=== PATIENT | male | born 1955 | race Caucasian/White ===

== ENCOUNTER → 2017-09-10 | Outpatient (CLI) | payer MEDICARE, OTHER | LOC: LAB.O 09:54 | PROVIDERS: ATTEND Urology | DX: C67.9 Malignant neoplasm of bladder, unspecified (principal); N50.9 Disorder of male genital organs, unspecified ==

== ENCOUNTER → 2017-12-27 | Outpatient (CLI) | payer MEDICARE, OTHER | LOC: GMAM 10:44 | PROVIDERS: ATTEND Family Medicine | DX: Z12.5 Encounter for screening for malignant neoplasm of prostate (principal) ==

== ENCOUNTER → 2017-12-31 | Outpatient (CLI) | payer MEDICARE, OTHER ==
--- NOTE | 2017-12-31 11:30 | US ---
EXAM DESCRIPTION:Venous,Lower Extremity RT CLINICAL HISTORY:DVT COMPARISON: None TECHNIQUE: Grayscale and color Doppler sonographic evaluation of lower extremity deep venous structures. FINDINGS: Common femoral, superficial femoral, popliteal , peroneal and posterior tibial veins in right lower extremity are patent with full compressibility. No intraluminal filling defect identified in these deep venous structures. IMPRESSION: No sonographic evidence of deep venous thrombosis (DVT) in right lower extremity Electronically signed by: Kit Carey MD 12/31/2017 11:29 AM [facility]
== END ==
LOC: US 10:30
PROVIDERS: ATTEND Family Medicine
DX: I80.292 Phlebitis and thrombophlebitis of other deep vessels of left lower extremity (principal); N18.3 Chronic kidney disease, stage 3 (moderate); F17.200 Nicotine dependence, unspecified, uncomplicated; E11.21 Type 2 diabetes mellitus with diabetic nephropathy

== ENCOUNTER → 2018-03-01 | Outpatient (CLI) | payer MEDICARE, OTHER ==
--- NOTE | 2018-03-02 17:29 | US ---
Exam: Bilateral lower extremity arterial Doppler sonogram CLINICAL HISTORY: Abnormal ankle brachial index of the right lower extremity TECHNIQUE: Doppler sonographic evaluation of the right lower extremity was performed. FINDINGS: Right Submitted sonographic images reveal monophasic flow throughout the right lower extremity with low velocities. This suggests proximal stenosis. Calcified plaque is seen in the common femoral and superficial femoral arteries. No high-grade stenosis is visualized. The following peak systolic flow flow velocity measurements were obtained: Common femoral artery velocity equals 40 centimeters per second , monophasic. Superficial femoral artery velocity equals 35-43 centimeters per second , monophasic. Popliteal artery velocity equals 20 centimeters per second , monophasic. Peroneal artery velocity equals 14 centimeters per second , monophasic. Posterior tibial artery velocity equals 26 centimeters per second , monophasic. Dorsalis pedis artery velocity equals 10 centimeters per second , monophasic. IMPRESSION: Slow monophasic flow throughout the right lower extremity arteries. Electronically signed by: Cole Henderson MD 03/02/2018 5:28 PM CDT
== END ==
LOC: US 11:05
PROVIDERS: ATTEND Family Medicine
DX: R09.89 Other specified symptoms and signs involving the circulatory and respiratory systems (principal)

== ENCOUNTER → 2018-03-16 | Outpatient (CLI) | payer MEDICARE, OTHER | LOC: GMAM 17:03 | PROVIDERS: ATTEND Family Medicine | DX: R39.0 Extravasation of urine (principal); C67.9 Malignant neoplasm of bladder, unspecified ==

== ENCOUNTER → 2018-06-02 | Outpatient (CLI) | payer MEDICARE, OTHER | LOC: GMAM 13:23 | PROVIDERS: ATTEND Family Medicine | DX: N18.3 Chronic kidney disease, stage 3 (moderate) (principal); D64.9 Anemia, unspecified; E83.51 Hypocalcemia ==

== ENCOUNTER → 2018-10-05 | Outpatient (CLI) | payer MEDICARE, OTHER | LOC: GMAM 12:07 | PROVIDERS: ATTEND Family Medicine | DX: N18.3 Chronic kidney disease, stage 3 (moderate) (principal); E83.51 Hypocalcemia; D64.9 Anemia, unspecified ==

== ENCOUNTER → 2018-12-10 | Outpatient (CLI) | payer MEDICARE, OTHER | LOC: LAB.O 09:50 | PROVIDERS: ATTEND Urology | DX: R68.89 Other general symptoms and signs (principal); R79.89 Other specified abnormal findings of blood chemistry; C67.9 Malignant neoplasm of bladder, unspecified ==

== ENCOUNTER → 2019-01-17 | Outpatient (CLI) | payer MEDICARE, OTHER | LOC: GMAM 12:11 | PROVIDERS: ATTEND Family Medicine | DX: D63.1 Anemia in chronic kidney disease (principal); E21.1 Secondary hyperparathyroidism, not elsewhere classified; N18.4 Chronic kidney disease, stage 4 (severe); E55.9 Vitamin D deficiency, unspecified ==

== ENCOUNTER → 2019-03-17 | Outpatient (CLI) | payer MEDICARE, OTHER | LOC: GMAM 10:56 | PROVIDERS: ATTEND Family Medicine | DX: N18.4 Chronic kidney disease, stage 4 (severe) (principal); D63.1 Anemia in chronic kidney disease; E21.1 Secondary hyperparathyroidism, not elsewhere classified ==

== ENCOUNTER → 2019-04-26 | Outpatient (CLI) | payer MEDICARE, OTHER | LOC: GMAM 16:54 | PROVIDERS: ATTEND Family Medicine | DX: L03.119 Cellulitis of unspecified part of limb (principal); L03.129 Acute lymphangitis of unspecified part of limb ==

== ENCOUNTER → 2019-04-28 | Outpatient (CLI) | payer MEDICARE, OTHER ==
--- NOTE | 2019-04-30 17:30 | US ---
EXAM DESCRIPTION: Extremity,Upper RT Arteries (accession [id number]), Venous,Upper Extremity RT (accession [id number]): ULTRASOUND. CLINICAL HISTORY: OTHER ATHEROSCLEROSIS OF [place] ARTERIES OF EXTREMITIES, UNSPECIFIED. Swelling in the right upper extremity after placement of arteriovenous shunt for dialysis COMPARISON: None Available. TECHNIQUE: Two -dimensional and doppler sonographic evaluation of the deep venous system of the right upper extremity. Doppler evaluation of the bilateral lower extremity arterial flow waveforms and velocities. FINDINGS: Doppler evaluation shows normal color flow and normal phasicity and augmentation of the right subclavian, jugular, axillary, basilic,, brachial, radial vein and ulnar vein. Cephalic vein was not seen. The right upper extremity deep veins showed normal occlusion with transducer pressure. Two-dimensional survey showed no echogenic thrombus within these veins. Arterial waveforms in the right upper extremity are biphasic and monophasic.. Comments: Significant decrease in velocity radial and ulnar arteries secondary to AV shunt. IMPRESSION: 1. Duplex ultrasound evaluation of the right upper extremity deep venous system showing no thrombosis or abnormal vascular waveform . 2. No Doppler evidence of significant atherosclerotic occlusive disease in the right upper extremity arterial system. Electronically signed by: Turner Main MD 04/30/2019 5:28 PM CDT
--- NOTE | 2019-04-30 17:30 | US ---
EXAM DESCRIPTION: Extremity,Upper RT Arteries (accession [id number]), Venous,Upper Extremity RT (accession [id number]): ULTRASOUND. CLINICAL HISTORY: OTHER ATHEROSCLEROSIS OF [place] ARTERIES OF EXTREMITIES, UNSPECIFIED. Swelling in the right upper extremity after placement of arteriovenous shunt for dialysis COMPARISON: None Available. TECHNIQUE: Two -dimensional and doppler sonographic evaluation of the deep venous system of the right upper extremity. Doppler evaluation of the bilateral lower extremity arterial flow waveforms and velocities. FINDINGS: Doppler evaluation shows normal color flow and normal phasicity and augmentation of the right subclavian, jugular, axillary, basilic,, brachial, radial vein and ulnar vein. Cephalic vein was not seen. The right upper extremity deep veins showed normal occlusion with transducer pressure. Two-dimensional survey showed no echogenic thrombus within these veins. Arterial waveforms in the right upper extremity are biphasic and monophasic.. Comments: Significant decrease in velocity radial and ulnar arteries secondary to AV shunt. IMPRESSION: 1. Duplex ultrasound evaluation of the right upper extremity deep venous system showing no thrombosis or abnormal vascular waveform . 2. No Doppler evidence of significant atherosclerotic occlusive disease in the right upper extremity arterial system. Electronically signed by: Turner Main MD 04/30/2019 5:28 PM CDT
== END ==
LOC: US 10:30
PROVIDERS: ATTEND Family Medicine
DX: R60.0 Localized edema (principal); L03.113 Cellulitis of right upper limb; I70.299 Other atherosclerosis of native arteries of extremities, unspecified extremity

== ENCOUNTER → 2019-05-02 | Outpatient (CLI) | payer MEDICARE, OTHER | LOC: GMAM 10:14 | PROVIDERS: ATTEND Family Medicine | DX: L03.113 Cellulitis of right upper limb (principal) ==

== ENCOUNTER → 2019-05-23 | Outpatient (CLI) | payer MEDICARE, OTHER | LOC: GMAJS 10:57 | PROVIDERS: ATTEND Physician Assistant | DX: R50.9 Fever, unspecified (principal) ==

== ENCOUNTER 2019-05-24 16:54 | Emergency (ER) | payer MEDICARE, OTHER ==
--- NOTE | 2019-05-24 19:04 | ED.PDOC ---
History of Present Illness - General Chief Complaint: Post Op Problems Stated Complaint: RIGHT ARM FISTULA OOZING Time Seen by Provider: 05/24/19 17:01 Source: patient Exam Limitations: no limitations - History of Present Illness Initial Comments: the patient is 63-year-old male presenting to the emergency room secondary to a dehisced right antecubital fistula site. This was apparently placed [address] Hair. He had had some increased swelling for at least the last week or 2 with a finely opening up this morning. He apparently went to his primary care doctor yesterday and was placed on doxycycline. He has apparently had one or 2 doses of that. We did do a wound culture here. We did do a blood culture here. He reports fever yesterday but none really today. He does appear to be neurovascularly at his baseline. He does not really appear to be septic. Timing/Duration: unsure Severity: moderate Improving Factors: nothing Worsening Factors: nothing Associated Symptoms: fever/chills Allergies/Adverse Reactions: Allergies Codeine Allergy (Verified 02/05/14 15:52) Penicillin G Allergy (Verified 02/05/14 15:52) Review of Systems - Review of Systems Constitutional: States: fever, malaise EENTM: States: no symptoms reported Respiratory: States: no symptoms reported Cardiology: States: no symptoms reported Gastrointestinal/Abdominal: States: no symptoms reported Genitourinary: States: no symptoms reported Musculoskeletal: States: no symptoms reported Skin: States: see HPI Neurological: States: no symptoms reported Endocrine: States: no symptoms reported All other Systems: No Change from Baseline Past Medical History (General) - Patient Medical History Hx Seizures: No Hx Cardiac Disorders: No Hx Congestive Heart Failure: No Hx Hypertension: No Hx Diabetes: Yes Hx Renal Disease: Yes Hx Cancer: Yes - Bladder Surgical History: other - Social History Hx Tobacco Use: Yes Family Medical History - Family History Father Family History: Unknown Physical Exam - Physical Exam General Appearance: Alert, Comfortable, No apparent distress Eye Exam: bilateral normal Ears, Nose, Throat: hearing grossly normal, normal ENT inspection Neck: full range of motion, supple Respiratory: lungs clear, normal breath sounds, no respiratory distress, no accessory muscle use Cardiovascular/Chest: normal peripheral pulses, no edema, other - regular rate Peripheral Pulses: radial,right: 2+, radial,left: 2+ Gastrointestinal/Abdominal: non tender, soft Rectal Exam: deferred Back Exam: no CVA tenderness, no vertebral tenderness Extremity: normal range of motion, no pedal edema, no calf tenderness, normal capillary refill, other - right upper extremity swelling and erythema along with dehisced antecubital site. Neurologic: dramatic critic II-XII nml as tested, alert, normal mood/affect, oriented x 3 Skin Exam: other Comments: Vital Signs - 24 hr 05/24/19 05/24/19 17:14 18:00 Temperature 98.8 F Pulse Rate [ 94 H 82 left brachial] Respiratory 18 20 Rate Blood Pressure 131/73 113/72 [left brachial] O2 Sat by Pulse 94 L 98 Oximetry Progress - Progress Progress: 05/24/19 19:05 the patient's 63-year-old male presenting to emergency room with a dehisced right antecubital fistula placement site. This was apparently placed by Dr. Hair approximately 5 weeks ago. The patient was started on oral doxycycline yesterday. The wound opened up today. We have done a wound culture as well as a blood culture here. Laboratory work otherwise appears to be close to baseline. He does not appear to be septic at this time. The patient is being transferred to [facility] where the surgery was performed for further intervention. No additional antibiotics have been done at this time. This is to allow for culturing of the wound during surgery if desired by vascular. The patient does appear stable at this time. As per his request he will go by private vehicle. He knows to go directly there. Departure - Departure Clinical Impression: Postoperative wound infection Disposition: Transfer to Hospital Condition: Serious Departure Forms: ED Discharge - Pt. Copy, Patient Portal Self Enrollment Referrals: Dom Garcia MD [Primary Care Provider] - 1-2 Weeks Transfer to Outside Facility - Transfer Information Accepting Provider:: dr vivas Accepting Facility: [facility] Reason for Transfer: required specialist not available
[2019-05-24 19:22] VITALS: BP 127/95; TEMP 98; O2SAT 100
== END 2019-05-24 19:25 | disposition short-term general hospital (02) ==
LOC: ER 16:54
DX: T81.49XA Infection following a procedure, other surgical site, initial encounter (principal); E11.22 Type 2 diabetes mellitus with diabetic chronic kidney disease; N18.9 Chronic kidney disease, unspecified; Z87.891 Personal history of nicotine dependence; Z85.51 Personal history of malignant neoplasm of bladder; Z88.0 Allergy status to penicillin; Z88.5 Allergy status to narcotic agent

== ENCOUNTER → 2019-08-11 | Outpatient (CLI) | payer MEDICARE, OTHER | LOC: GMAM 12:11 | PROVIDERS: ATTEND Family Medicine | DX: N18.4 Chronic kidney disease, stage 4 (severe) (principal); D63.1 Anemia in chronic kidney disease; E11.21 Type 2 diabetes mellitus with diabetic nephropathy ==

== ENCOUNTER → 2019-10-20 | Outpatient (CLI) | payer MEDICARE, OTHER | LOC: GMAM 10:15 | PROVIDERS: ATTEND Family Medicine | DX: D63.1 Anemia in chronic kidney disease (principal); E11.65 Type 2 diabetes mellitus with hyperglycemia; E87.5 Hyperkalemia; N18.4 Chronic kidney disease, stage 4 (severe) ==

== ENCOUNTER → 2020-07-02 | Outpatient (CLI) | payer MEDICARE, OTHER ==
--- NOTE | 2020-07-03 17:57 | MRI ---
EXAM DESCRIPTION: Lumbar Spine w/o Contrast : Magnetic Resonance Imaging. CLINICAL HISTORY: LOW BACK COMPARISON: Lumbar radiographs January 17. CT scan of the abdomen and pelvis without contrast May 2014. TECHNIQUE: Multiplanar, multiple standard sequences, non contrast MRI, lumbar spine. FINDINGS: L5-S1: The disc is well visualized on axial T2 series 501, image 3. Disc desiccation and minimal disc space loss. Posterior midline bulge. Hypertrophic changes in the posterior flavum ligaments and bilateral facet joints (canal elements), more on the left. Bilateral shortened pedicles. AP canal diameter 8 mm. Bilateral borderline foraminal stenosis. L4-L5: Disc desiccation with disc space maintained. Posterior midline tiny bulge containing hyperintense T2 annular fissures. Hypertrophic changes in the canal elements more on the right. Bilaterally shortened pedicles. AP canal diameter 9 mm. Bilateral severe foraminal narrowing/borderline stenosis. L3-L4: Normal signal in the disc with disc space maintained. No posterior bulging. Hypertrophic changes in the canal elements with bilaterally shortened pedicles. AP canal diameter 8.5 mm. Bilateral borderline foraminal stenosis more on the right. L2-L3: Disc space maintained with normal signal in the disc. Hypertrophic changes in the canal elements. Bilateral pedicle shortening. AP canal diameter 9.5 mm. Bilateral moderate to severe foraminal narrowing. L1-L2: Disc desiccation with disc space maintained. Hyperintense T2-weighted annular fissure in the posterior margin of the focal disc bulge, and also laterally to the left. Bilateral moderate foraminal narrowing. Hypertrophic changes in the canal elements and bilateral pedicle shortening. AP canal diameter 7.5 mm. T12-L1: Disc desiccation and posterior disc space loss. Endplate concavities with an active Schmorl's low inferior T12 endplate to the right of midline. Anterior disc bulge and endplate ridging with mild endplate reactive changes. Posterior midline 5 mm protrusion impressing on the thecal sac just below the conus. Hypertrophic changes in the canal elements. Bilateral pedicle shortening. AP canal diameter 7.5 mm. Bilateral moderate foraminal narrowing. Spine is tilted but no definite scoliosis. Paravertebral soft tissues paraspinal muscle atrophy. Distal cord normal signal and caliber. Heterogeneous marrow signal in the remaining vertebral bodies and the posterior elements. Vertebral bodies are not compressed at any level. IMPRESSION: 1. Multilevel disc desiccation, bilaterally shortened pedicles, degenerative hypertrophy of the posterior flavum ligaments and facet joints with multiple levels of canal and foraminal stenosis. 2. Posterior midline herniation of the T12-L1 disc impressing on the thecal sac with canal stenosis. Most significant canal stenosis is at this level and L1-L2 with moderate stenosis. Bilateral foraminal stenosis at L5-S1 and L4-L5. 3. Please refer to above FINDINGS for discussion of other disc space levels. Electronically signed by: Turner Main MD 07/03/2020 5:55 PM CDT
== END | disposition home or self-care (01) ==
LOC: MRI 14:15
PROVIDERS: ATTEND Family Medicine
DX: M54.5 Low back pain (principal)

== ENCOUNTER → 2020-10-16 | Outpatient (CLI) | payer MEDICARE, OTHER ==
--- NOTE | 2020-10-17 13:24 | CT ---
EXAM DESCRIPTION: Chest w/o Contrast CLINICAL HISTORY: PNEUMONIA COMPARISON: None. TECHNIQUE: Noncontrast transaxial CT images of the chest are obtained. This exam was performed according to our departmental dose-optimization program, which includes automated exposure control, adjustment of the mA and/or kV according to patient size and/or use of iterative reconstruction technique . FINDINGS: The heart is enlarged. Right IJ hemodialysis catheter seen in place with tip at the cavoatrial junction. Scattered calcified plaque of the thoracic aorta. Severe coronary artery calcifications. Enlarged mediastinal lymphadenopathy. Largest right paratracheal lymph node measures 17 mm short axis. Soft tissue attenuation mass in the right hilar to subcarinal region is seen measuring at least 4.9 cm in the right hilum. The subcarinal soft tissue attenuation mass measures 3.2 x 4.3 cm. Calcified lymph nodes in the left hilum are seen. Enlarged prevascular lymph nodes are seen. Lymph node anterior to the left innominate vein measures 14 mm short axis. Question lymph node lateral to the right thyroid measuring 1.9 cm short axis. No pericardial effusion. Trace right pleural effusion. Visualized upper abdomen shows surgical clips possibly related to previous right nephrectomy. Calcifications of the spleen are seen. The lungs are normally aerated. Increased interstitial thickening in the right upper lobe and more prominently in the right middle lobe are seen. Noncalcified nodular densities in the right upper lobe are seen. The largest measures 9 mm. Osseous structures show no aggressive bony lesions. Mild spondylitic changes of the spine are seen. IMPRESSION: Left perihilar to subcortical mass or lymphadenopathy concerning for neoplastic process possibly primary bronchogenic carcinoma. Consider tissue sampling if possible. Enlarged mediastinal lymphadenopathy likely represent lymphatic spread of neoplastic process versus lymphoma. Interstitial thickening in the right upper and right middle lobes with multiple nodular densities concerning for lymphangitic spread of neoplastic process in the right hilar to subcarinal region versus postobstructive pneumonia or pneumonitis. Small right pleural effusion is seen. Electronically signed by: Mirza Pemberton MD 10/17/2020 1:23 PM [facility]
== END ==
LOC: CT 09:52
PROVIDERS: ATTEND Family Medicine
DX: J18.9 Pneumonia, unspecified organism (principal); R91.8 Other nonspecific abnormal finding of lung field; R59.1 Generalized enlarged lymph nodes

== ENCOUNTER 2020-11-03 12:34 | Emergency (ER) | payer MEDICARE, OTHER ==
[2020-11-03] MEDS ORDERED: IPRATROPIUM/ALBUTEROL 3 ML VIAL NEB ONE ×2 (12:43→20:44)
[2020-11-03] MEDS ORDERED: SODIUM CHL 0.9% 50ML VIAL 3 ML, ALBUTEROL SULFATE NEBS 15 MG NEB ONE ×4 (12:48→17:44)
[2020-11-03] MEDS ORDERED: IPRATROPIUM BROMIDE NEBS 0.5 MG/2.5 ML VIAL NEB ONE (12:48)
--- NOTE | 2020-11-03 12:48 | ED.PDOC ---
History of Present Illness - General Source: patient, RN notes reviewed, Vital Signs reviewed, EMS notes reviewed, family - , EMS, old records Exam Limitations: clinical condition - History of Present Illness Initial Comments: 64 yo M comes in via EMS with difficulty breathing x 3 days. Hx of lung cancer, unsure if on treatment. denies chest pain. Patient talks one word per breath. Hx of dialysis, renal and bladder cancer. Was dx with stage 4 lung cancer 2 weeks ago, is scheduled to have biopsy next week. Had negative covid test 2 weeks ago. Timing/Duration: days <Mela Grady - Last Filed: 11/04/20 06:30> <Berry Garcia - Last Filed: 11/04/20 09:25> - General Chief Complaint: Respiratory Problem Time Seen by Provider: 11/03/20 12:35 - History of Present Illness Allergies/Adverse Reactions: Allergies Codeine Allergy (Verified 11/03/20 13:11) Penicillin G Allergy (Verified 11/03/20 13:11) Home Medications: Ambulatory Orders Albuterol Sulfate [Proair Hfa] 108 mcg INH PRN PRN 11/03/20 Budes/Formoterol INH 160/4.5 [Symbicort Inhaler 160/4.5] 1 puff INH PRN PRN 11/03/20 HYDROcodone 5MG/APAP 325MG [[place] 5/325] 1 tab PO QID PRN 11/03/20 Linagliptin [Tradjenta] 5 mg PO DAILY 11/03/20 Lisinopril 10 mg PO DAILY 11/03/20 Pravastatin Sodium 20 mg PO DAILY 11/03/20 Sodium Bicarbonate (Antacid) [Sodium Bicarbonate] 650 mg PO BID 11/03/20 Tiotropium [place] Monohydrate [Spiriva Respimat] 1.25 mcg INH PRN PRN 11/03/20 Review of Systems - Review of Systems Constitutional: Denies: chills, fever EENTM: Denies: blurred vision, throat pain Respiratory: States: cough, short of breath, wheezing Cardiology: Denies: chest pain, palpitations Gastrointestinal/Abdominal: Denies: abdominal pain, nausea Genitourinary: Denies: dysuria Musculoskeletal: Denies: back pain Neurological: Denies: numbness, paresthesia Endocrine: Denies: unexplained weight gain, unexplained weight loss Hematologic/Lymphatic: Denies: easy bleeding, easy bruising <Mela Grady Last Filed: 11/04/20 06:30> Past Medical History (General) - Patient Medical History Hx Seizures: No Hx Stroke: No Hx Dementia: No Hx of COPD: Yes Hx Cardiac Disorders: No Hx Congestive Heart Failure: No Hx Pacemaker: No Hx Hypertension: No Hx Diabetes: Yes Hx Renal Disease: Yes Hx Cancer: Yes - Bladder, kidney, lung Surgical History: other - nephrectomy - Social History Hx Tobacco Use: Yes <Mela Grady Last Filed: 11/04/20 06:30> Family Medical History - Family History Father Family History: Unknown <Mela Grady Last Filed: 11/04/20 06:30> Physical Exam - Physical Exam General Appearance: Alert, Anxious, Ill Appearing, Unkempt, Well Developed Eyes, Ears, Nose, Throat Exam: normal ENT inspection Neck: non-tender, full range of motion, supple Respiratory: chest non-tender, decreased breath sounds, accessory muscle use, wheezing Cardiovascular/Chest: normal peripheral pulses, no edema, no gallop, no JVD, no murmur Peripheral Pulses: radial,right: 2+, radial,left: 2+, dorsalis pedis,right: 2+, dorsalis pedis,left: 2+ Gastrointestinal/Abdominal: non tender, soft Rectal Exam: deferred Extremity: normal range of motion, non-tender, normal inspection, no pedal edema, no calf tenderness, normal capillary refill Neurologic: scanning coordinator II-XII nml as tested, no motor/sensory deficits, alert, normal mood/affect, oriented x 3 Skin Exam: normal color, warm/dry <Mela Grady Last Filed: 11/04/20 06:30> Progress - Progress Progress: 11/03/20 15:14 delay in dispo, finding placement. called 24+ placed, no placement available. 64 yo male hx of COPD, DM, ESRD on dialysis M, T,Th ,F (at home) comes in with 3 days of progressively worsening shortness of breath. 2 weeks ago was diagnosed with new onset lung cancer and was scheduled to have a biopsy next week. He was also being treated for pneumonia, but unsure what antibiotics. When patient arrived he was tachypnea, hypoxic. Speaking only one word per breath. HR 132, BP 180/100, temp 99.9, 83% on RA. Exam showed wheezes in all lung galan with accessory muscle use. CXR shows small pleural effusion, with lung mass. Blood gas shows ph 7.325, pco2 59, po2 85, hco30. He has a troponin 0.15, rpeat .19. EKG sinus tachy and shows RBBB, lafb, no prior for comparison. Covid is negative. Hes been given duonebs, solumedrol. Started on heparin. He is currently stable on bipap. Rr 23, Fio2 40 saturating 93%, speaking in full sentences. Hypoxic resp failure, copd exacerbation, nstemi. glucose 431, cr 3.37. Patient weaned off bipap, stable on 7L NC. sats 97-99%. The data reviewed when caring for this patient included: nurse notes, prior records, etc. The history and assessments from nurses notes were reviewed and considered, and the patient's home medication list was also reviewed and considered. My assessment and the results of testing completed here in the ED were discussed with the patient/family. All questions were answered, and they express understanding of my assessment and the plan. Mela Grady DO #[id number] 11/04/20 00:57 - Results/Orders Results/Orders: 11/03/20 23:19 Sodium Chloride 0.9% 1000ML [Ns 1000 ml] 1,000 ml IVS .QD 11/04/20 09:00 BiPAP Daily Laboratory Results WBC 7.0 K/mm3 (4.8-10.8) 11/03/20 13:19 RBC 2.96 M/mm3 (4.70-6.10) L 11/03/20 13:19 Hgb 9.5 gm/dL (14.0-18.0) L 11/03/20 13:19 Hct 28.2 % (42.0-52.0) L 11/03/20 13:19 MCV 95.2 fl (80.0-94.0) H 11/03/20 13:19 MCH 32.2 pg (27.0-31.0) H 11/03/20 13:19 MCHC 33.8 g/dL (33.0-37.0) 11/03/20 13:19 RDW 16.9 % (11.5-14.5) H 11/03/20 13:19 Plt Count 133 K/mm3 (130-400) 11/03/20 13:19 MPV 7.5 fl (7.40-10.4) 11/03/20 13:19 Absolute Neuts (auto) 5.60 K/uL (1.8-6.8) 11/03/20 13:19 Absolute Lymphs (auto) 0.60 K/uL (1.0-3.4) L 11/03/20 13:19 Absolute Monos (auto) 0.70 K/uL (0.2-0.8) 11/03/20 13:19 Absolute Eos (auto) 0.00 K/uL (0.0-0.4) 11/03/20 13:19 Absolute Basos (auto) 0.00 K/uL (0.0-0.1) 11/03/20 13:19 Neutrophils % 80.4 % (42.0-78.0) H 11/03/20 13:19 Lymphocytes % 9.2 % (20.0-50.0) L 11/03/20 13:19 Monocytes % 9.8 % (2.0-9.0) H 11/03/20 13:19 Eosinophils % 0.2 % (1.0-5.0) L 11/03/20 13:19 Basophils % 0.4 % (0.0-2.0) 11/03/20 13:19 PT 11.6 SECONDS (9.0-10.9) H 11/03/20 13:19 INR 1.17 (0.9-1.15) H 11/03/20 13:19 PTT (SP) 24.5 SECONDS (21.8-31.6) 11/03/20 13:19 D-Dimer, Quantitative 3110.0 ng/ml (131-400) H* 11/03/20 13:19 pCO2 59 mmHg (35-48) H 11/03/20 12:43 pO2 85 mmHg (83-108) 11/03/20 12:43 HCO3 30.6 mmol/L 11/03/20 12:43 ABG pH 7.325 (7.35-7.45) L 11/03/20 12:43 ABG O2 Saturation 95.0 % (95.0-99.0) 11/03/20 12:43 ABG Base Excess 3.6 mmol/L 11/03/20 12:43 ABG Deoxyhemoglobin 4.9 % (0.0-5.0) 11/03/20 12:43 Oxyhemoglobin % 92.3 % (94.0-98.0) L 11/03/20 12:43 Carboxyhemoglobin % 1.7 % (0.5-1.5) H 11/03/20 12:43 Methemoglobin % Sat 1.1 % (0.0-1.5) 11/03/20 12:43 Calc Total Hemoglobin 9.8 g/dL (13.5-17.5) L 11/03/20 12:43 Sodium 135 mmol/L (135-145) 11/03/20 13:19 Potassium 3.0 mmol/L (3.6-5.0) L 11/03/20 13:19 Chloride 94 mmol/L (101-111) L 11/03/20 13:19 Carbon Dioxide 28 mmol/L (21-31) 11/03/20 13:19 Anion Gap 16.0 (12-18) 11/03/20 13:19 BUN 29 mg/dL (7-18) H 11/03/20 13:19 Creatinine 3.37 mg/dL (0.6-1.3) H 11/03/20 13:19 BUN/Creatinine Ratio 8.6 (10-20) L 11/03/20 13:19 POC Glucose 400 mg/dL (70-105) H 11/03/20 19:33 Random Glucose 446 mg/dL (70-105) H* 11/03/20 22:26 Serum Osmolality 294.1 mOsm/L (275-295) 11/03/20 13:19 Calcium 8.6 mg/dL (8.4-10.2) 11/03/20 13:19 Total Bilirubin 0.4 mg/dL (0.2-1.0) 11/03/20 13:19 AST 108 IU/L (10-42) H 11/03/20 13:19 ALT 99 IU/L (10-60) H 11/03/20 13:19 Alkaline Phosphatase 86 IU/L (42-121) 11/03/20 13:19 Troponin I 0.11 ng/mL (0.01-0.05) H* 11/03/20 21:56 B-Natriuretic Peptide 677.0 pg/ml (0-100) H* 11/03/20 13:19 Serum Total Protein 6.7 gm/dL (6.4-8.2) 11/03/20 13:19 Albumin 2.8 g/dl (3.2-5.5) L 11/03/20 13:19 Globulin 3.9 gm/dL (2.3-3.5) H 11/03/20 13:19 Albumin/Globulin Ratio 0.7 (1.1-1.9) L 11/03/20 13:19 Serum Ketones Negative 11/03/20 14:05 - EKG/XRAY/CT EKG: Sinus - 127, RBBB Comments: LAFB, LVH, PVC, no prior for comparison XRAY: chest - small effusion on right, lung mass <Mela Grady - Last Filed: 11/04/20 06:30> - Progress Progress: 11/04/20 09:24 The patient is breathing significantly better than upon his initial presentation. He is still requiring high flow nasal cannula at 6 to 7 L however. He does appear much more comfortable. CT scan of the chest shows what appears to be progression of likely neoplastic process. There is blocking of the right bronchus intermedius. There is right lower and midlung consolidation. There is increased pleural effusion on the right. [facility] He will be due for dialysis soon. Vital signs have stabilized significantly since arrival. Transferring for higher level of care. Acceptance is appreciated. <Berry Garcia - Last Filed: 11/04/20 09:25> Departure - Departure Diet: diabetic diet <Mela Grady - Last Filed: 11/04/20 06:30> <Berry Garcia - Last Filed: 11/04/20 09:25> - Departure Clinical Impression: COPD exacerbation, Hypoxia, NSTEMI (non-ST elevated myocardial infarction), Hyperglycemia, Lung mass, ESRD (end stage renal disease) on dialysis Respiratory failure with hypoxia Qualifiers: Chronicity: acute on chronic Qualified Code(s): J96.21 - Acute and chronic respiratory failure with hypoxia Disposition: Transfer to Hospital Departure Forms: ED Discharge - Pt. Copy, Patient Portal Self Enrollment Referrals: Dom Garcia MD [Primary Care Provider] - 1-2 Weeks Home Medications: Ambulatory Orders Albuterol Sulfate [Proair Hfa] 108 mcg INH PRN PRN 11/03/20 Budes/Formoterol INH 160/4.5 [Symbicort Inhaler 160/4.5] 1 puff INH PRN PRN 11/03/20 HYDROcodone 5MG/APAP 325MG [[place] 5/325] 1 tab PO QID PRN 11/03/20 Linagliptin [Tradjenta] 5 mg PO DAILY 11/03/20 Lisinopril 10 mg PO DAILY 11/03/20 Pravastatin Sodium 20 mg PO DAILY 11/03/20 Sodium Bicarbonate (Antacid) [Sodium Bicarbonate] 650 mg PO BID 11/03/20 Tiotropium [place] Monohydrate [Spiriva Respimat] 1.25 mcg INH PRN PRN 11/03/20 Transfer to Outside Facility - Transfer Information Decision to Transfer Date: 11/03/20 Decision to Transfer Time: 13:19 Reason for Transfer: required specialist not available <Mela Grady - Last Filed: 11/04/20 06:30>
[2020-11-03] MEDS ORDERED: methylPREDNISolone SODIUM SUC 125 MG/2 ML VIAL IV ONE (13:01)
[2020-11-03] MEDS ORDERED: LEVALBUTEROL NEBS 1.25 MG/3 ML VIAL NEB ONE (13:01)
--- NOTE | 2020-11-03 13:30 | RAD ---
PROCEDURE:XR CHEST 1 VIEW HISTORY:sob COMPARISON: CT scan done October 16, 2020 FINDINGS: The heart again appears enlarged. There is some prominence to the right hilar region consistent with the mass seen in the right hilar region. There is a trace right-sided effusion. Lungs are otherwise clear. There are no acute bony or soft tissue abnormalities. IMPRESSION: Prominence in the right hilar region consistent with known mass seen on CT scan Small right-sided effusion Electronically signed by: Adan Sow MD 11/03/2020 1:29 PM [facility]
[2020-11-03] MEDS ORDERED: HEPARIN SODIUM (PORCINE) 5,000 U/ML VIAL IV ONE (13:49)
[2020-11-03] MEDS ORDERED: HEPARIN PREMIX 25,000 UNITS in PREMIX BAG 1 BAG IVS SCH (14:00)
[2020-11-03] MEDS ORDERED: SODIUM CHLORIDE 0.9% 1000ML 1,000 ML IVS ONE (14:18)
[2020-11-03] MEDS ORDERED: POTASSIUM CHLORIDE ELIXIR 20 MEQ/15 ML UD PO ONE (14:18)
[2020-11-03] MEDS ORDERED: IPRATROPIUM/ALBUTEROL 3 ML VIAL NEB PRN (14:27)
[2020-11-03] MEDS ORDERED: levoFLOXacin 750MG IV 750 MG in PREMIX BAG 1 BAG IVPB ONE (14:29)
[2020-11-03] MEDS ORDERED: SODIUM CHLORIDE 0.9% 1000ML 1,000 ML IVS PRN ×2 (17:44→23:19)
[2020-11-03] MEDS ORDERED: ASPIRIN (CHEWABLE) 81 MG TAB PO ONE (17:45)
[2020-11-03] MEDS ORDERED: POTASSIUM CHLORIDE IVPB ONE (17:59)
[2020-11-03] MEDS ORDERED: INSULIN, REG.(HUMAN) 100 U/ML VIAL SUBCU ONE ×2 (18:00→19:48)
[2020-11-03] MEDS ORDERED: ALBUTEROL SULFATE 2.5 MG/3 ML VIAL NEB ONE (18:12)
[2020-11-03] MEDS ORDERED: INSULIN DETEMIR 100 UNITS/ML PEN SUBCU ONE (23:18)
[2020-11-04] MEDS ORDERED: ALBUTEROL SULFATE 2.5 MG/3 ML VIAL NEB ONE (00:39)
[2020-11-04] MEDS ORDERED: methylPREDNISolone SODIUM SUC 125 MG/2 ML VIAL IV ONE (07:12)
[2020-11-04] MEDS ORDERED: IPRATROPIUM/ALBUTEROL 3 ML VIAL NEB ONE (07:12)
--- NOTE | 2020-11-04 09:21 | CT ---
EXAM DESCRIPTION: Chest w/o Contrast CLINICAL HISTORY: 64 years, Male, reeval lung masses, resp distress COMPARISON: October 16, [address] TECHNIQUE: Thin-section noncontrast axial CT images are obtained according to our protocol. Reconstructed MPR images are created and reviewed as well. This exam was performed according to our departmental dose-optimization program, which includes automated exposure control, adjustment of the mA and/or kV according to patient size and/or use of iterative reconstruction technique. FINDINGS: Significant deterioration of the right hemithorax since previous study with significant new volume loss and elevation of the right hemidiaphragm with increasing modest pleural effusion with significant right lower lobe and right middle lobe atelectasis/consolidation. There is obstruction of the bronchus intermedius 1.5 cm distal to its origin from either inflammatory disease, intrinsic neoplasm, or extrinsic compression. Extensive mass effect filling the right hilum with pathologically enlarged right paratracheal as well as superior and middle mediastinal and aorticopulmonary window lymphadenopathy consistent with metastatic tumor or lymphomatous primary neoplastic process. Interval deterioration since previous study with diffuse slightly increased prominence of lymphadenopathy noted. Previously described patchy peripheral inflammatory changes and interstitial stranding and nodularity in the remaining aerated right upper lobe is suspicious for lymphangitic spread of tumor or mild inflammatory changes. Left lung remains essentially clear with a tiny focus of pleural-based opacification superior segment left lower lobe posteriorly medially, new from prior study. No significant pleural fluid noted. Slightly coarsened stranding at the posterior lateral left lung base also now evident. Below the diaphragm surgical clips in the expected region of the right renal bed suggest the possibility of previous right nephrectomy. Cardiac silhouette is borderline prominent with extensive coronary calcification with what appears to be left ventricular dilatation and lucency in the ventricular chamber suspicious for an element of significant anemia. Correlation with laboratory values recommended. Supraclavicular and axillary region demonstrate suspected slightly enlarged lymph node in the right supraclavicular region at the superior extent of the scan. IMPRESSION: 1. Significant deterioration of the right lung with volume loss elevation of the right hemidiaphragm and increasing small pleural effusion with dense atelectasis right lower lobe and at least partial atelectasis of the right middle lobe with opacification of the distal bronchus intermedius from inflammatory change, intrinsic neoplasm, or extrinsic compression. 2. Worsening right hilar mass effect and extensive mediastinal adenopathy with significant progression from recent prior study three weeks earlier consistent with primary neoplasm with metastatic disease or rapidly progressive lymphomatous process. 3. Patchy interstitial and nodular changes in the remaining aerated right upper lobe suspicious for lymphangitic spread of tumor and minimal peripheral inflammatory changes in the posterior left lung base most likely atelectasis or mild inflammation. 4. Surgical clips right upper quadrant suspicious for previous right nephrectomy. 5. Probable left ventricular dilatation and questionable changes of anemia. 6. Right-sided central catheter in place. Electronically signed by: Dom Velazco MD 11/04/2020 9:20 AM [facility]
[2020-11-04 09:25] VITALS: TEMP 96.7
[2020-11-04 10:11] VITALS: BP 138/97; O2SAT 97
== END 2020-11-04 10:00 | disposition short-term general hospital (02) ==
LOC: ER 12:34
DX: J96.21 Acute and chronic respiratory failure with hypoxia (principal); J44.1 Chronic obstructive pulmonary disease with (acute) exacerbation; I21.4 Non-ST elevation (NSTEMI) myocardial infarction; N18.6 End stage renal disease; R00.0 Tachycardia, unspecified; I45.10 Unspecified right bundle-branch block; I44.4 Left anterior fascicular block; C34.90 Malignant neoplasm of unspecified part of unspecified bronchus or lung; E11.65 Type 2 diabetes mellitus with hyperglycemia; Z20.828 Contact with and (suspected) exposure to other viral communicable diseases; Z87.01 Personal history of pneumonia (recurrent); Z85.51 Personal history of malignant neoplasm of bladder; Z85.528 Personal history of other malignant neoplasm of kidney; E11.22 Type 2 diabetes mellitus with diabetic chronic kidney disease; Z87.891 Personal history of nicotine dependence; Z88.5 Allergy status to narcotic agent; Z88.0 Allergy status to penicillin; Z79.899 Other long term (current) drug therapy; Z99.2 Dependence on renal dialysis
CPT/HCPCS: 36415; 36416; 36600; 71045; 71250; 80053; 82009; 82803; 82805; 82947; 82948; 83880; 84484; 85025; 85379; 85610; 85730; 87040; 87635; 93005; 94640; 94660; J1644; J1815; J1956; J2930; J7030; J7611; J7614; J7620; J7644

== ENCOUNTER 2021-01-03 14:54 | Inpatient (IN) | payer MEDICARE, OTHER ==
[2021-01-03] MEDS ORDERED: cefTRIAXone SODIUM 1 GM in SODIUM CHL 0.9% 50ML MIN-BAG+ 50 ML IVPB ONE (15:04)
--- NOTE | 2021-01-03 15:14 | ED.PDOC ---
History of Present Illness - General Time Seen by Provider: 01/03/21 15:02 Source: RN notes reviewed, Vital Signs reviewed, EMS notes reviewed Exam Limitations: clinical condition Additional Information: 65-year-old male patient, DNR with a stage IV lung cancer, patient presents to the ER because of shortness of breath, according to EMS patient is on oxygen at home but has become progressively more short of breath and since yesterday, patient is able to speak in short sentences here he is tachypneic diaphoretic pale and gonzalez looking skin, patient is tripoding in the bed Patient is oxygen dependent at home unknown if he still smokes patient family wants patient to be evaluated for hospice - History of Present Illness Timing/Duration: other - 2 days Improving Factors: nothing Worsening Factors: nothing Allergies/Adverse Reactions: Allergies Codeine Allergy (Verified 01/03/21 15:23) Penicillin G Allergy (Verified 01/03/21 15:23) Home Medications: Ambulatory Orders Albuterol Sulfate [Proair Hfa] 108 mcg INH PRN PRN 11/03/20 Budes/Formoterol INH 160/4.5 [Symbicort Inhaler 160/4.5] 1 puff INH PRN PRN 11/03/20 HYDROcodone 5MG/APAP 325MG [[place] 5/325] 1 tab PO QID PRN 11/03/20 Linagliptin [Tradjenta] 5 mg PO DAILY 11/03/20 Lisinopril 10 mg PO DAILY 11/03/20 Pravastatin Sodium 20 mg PO DAILY 11/03/20 Sodium Bicarbonate (Antacid) [Sodium Bicarbonate] 650 mg PO BID 11/03/20 Tiotropium [place] Monohydrate [Spiriva Respimat] 1.25 mcg INH PRN PRN 11/03/20 Review of Systems - Review of Systems EENTM: States: no symptoms reported Respiratory: States: short of breath Cardiology: States: no symptoms reported Gastrointestinal/Abdominal: States: no symptoms reported Genitourinary: States: no symptoms reported Musculoskeletal: States: no symptoms reported Skin: States: no symptoms reported Neurological: States: no symptoms reported Endocrine: States: no symptoms reported Hematologic/Lymphatic: States: no symptoms reported Past Medical History (General) - Patient Medical History Hx Seizures: No Hx Stroke: No Hx Dementia: No Hx of COPD: Yes Hx Cardiac Disorders: No Hx Congestive Heart Failure: No Hx Pacemaker: No Hx Hypertension: No Hx Diabetes: Yes Hx Renal Disease: Yes Hx Cancer: Yes - Bladder, kidney, lung - Social History Hx Tobacco Use: Yes Hx Alcohol Use: Yes Hx Substance Use: No Hx Substance Use Treatment: No Hx Depression: No - Female History Patient : No Family Medical History - Family History Father Family History: Unknown Physical Exam - Physical Exam General Appearance: Obvious distress, Ill Appearing Eye Exam: bilateral normal Ears, Nose, Throat: hearing grossly normal, normal ENT inspection, normal pharynx Neck: non-tender, full range of motion, supple Respiratory: other - tachypnea, rales and ronchi Cardiovascular/Chest: normal peripheral pulses, regular rate, rhythm, no edema, no gallop, no JVD, no murmur Peripheral Pulses: radial,right: 2+, radial,left: 2+ Gastrointestinal/Abdominal: normal bowel sounds, non tender, soft, no organomegaly Extremity: normal range of motion Neurologic: other - gcs of 11 Skin Exam: mottled Progress - Progress Progress: Patient, with history of stage IV lung cancer, patient was discharged from [facility] Wednesday, because he was hypoxic at home, according to the he is neurological status has been deteriorating for the past couple of days patient arrived in the hospital he was able to communicate at the beginning but now his little a GCS of 11, he is on BiPAP because patient is on a DNR/DNI status, change due to CO2 retention, chest x-ray did show evidence of a complete right lung on the right side, I did a full septic work-up including antibiotics Rocephin and Zithromax blood culture lactic acid, and patient was put on BiPAP his pulse ox is above 90 at the moment we will transfer to high-level care facility for evaluation family requested to be transferred back to [facility] I spoke with the twice even though there are no paperwork stating that patient is a DNR/DNI stated that she does not want this patient to be intubated 01/03/21 16:13 01/03/21 16:23 Departure - Departure Clinical Impression: Respiratory failure Qualifiers: Chronicity: acute Respiratory failure complication: unspecified whether with hypoxia or hypercapnia Qualified Code(s): J96.00 - Acute respiratory failure, unspecified whether with hypoxia or hypercapnia Disposition: Transfer to Hospital Referrals: Dom Garcia MD [Primary Care Provider] - 1-2 Weeks Home Medications: Ambulatory Orders Albuterol Sulfate [Proair Hfa] 108 mcg INH PRN PRN 11/03/20 Budes/Formoterol INH 160/4.5 [Symbicort Inhaler 160/4.5] 1 puff INH PRN PRN 11/03/20 HYDROcodone 5MG/APAP 325MG [[place] 5/325] 1 tab PO QID PRN 11/03/20 Linagliptin [Tradjenta] 5 mg PO DAILY 11/03/20 Lisinopril 10 mg PO DAILY 11/03/20 Pravastatin Sodium 20 mg PO DAILY 11/03/20 Sodium Bicarbonate (Antacid) [Sodium Bicarbonate] 650 mg PO BID 11/03/20 Tiotropium [place] Monohydrate [Spiriva Respimat] 1.25 mcg INH PRN PRN 11/03/20 Transfer to Outside Facility - Transfer Information Decision to Transfer Date: 01/03/21 Decision to Transfer Time: 16:24 Reason for Transfer: required specialist not available Accepting Facility: [facility]
--- NOTE | 2021-01-03 15:51 | RAD ---
EXAM DESCRIPTION: Chest,1 View CLINICAL HISTORY: sob COMPARISON: November 03, 2020. CT of the chest October 27, 2020. FINDINGS: Portable semiupright view of the thorax. Complete whiteout/opacity of the right lung is present without significant volume loss or mediastinal displacement. No aerated right lung. Contralateral left lung remains clear. Central venous catheter remains in stable position with catheter tips projecting over the atrium. No other significant change. IMPRESSION: Complete opacity of the right hemithorax without volume loss or mediastinal displacement. Patient was noted to have a right hilar neoplasm November 04, 2020. Postobstructive airspace process with effusion likely. Electronically signed by: Carlos Brand MD 01/03/2021 3:50 PM [facility]
[2021-01-03] MEDS ORDERED: AZITHROMYCIN IV 500 MG in SODIUM CHLORIDE 0.9% 250ML 250 ML IVPB ONE (16:12)
[2021-01-03] MEDS ORDERED: DOPamine PREMIX 400 MG in PREMIX BAG 1 BAG IVPB SCH (19:00)
[2021-01-03] MEDS ORDERED: SODIUM CHLORIDE 0.9% (FLUSH) 10 ML SYG IV PRN (23:26)
[2021-01-03] MEDS ORDERED: IV SET AND CAP CHANGE INJ INJ SCH (23:30)
[2021-01-03] MEDS ORDERED: IPRATROPIUM/ALBUTEROL 3 ML VIAL NEB PRN (23:51)
[2021-01-03] MEDS ORDERED: ACETAMINOPHEN SUPPOSITORY 650 MG PR PRN (23:54)
[2021-01-03] MEDS ORDERED: ONDANSETRON INJ 4 MG/2 ML VIAL IV PRN (23:55)
[2021-01-04 05:17] VITALS: BP 119/72; TEMP 98.1
[2021-01-04] MEDS ORDERED: MORPHINE SULFATE INJ 10 MG/ML VIAL ONE ×2 (09:41→13:02)
[2021-01-04] MEDS: MORPHINE SULFATE INJ 10 MG/ML VIAL IV PRN ×3 (09:57→13:08)
[2021-01-04 12:38] VITALS: O2SAT 94
--- NOTE | 2021-01-04 15:55 | HP ---
SUPERVISING PHYSICIAN: Lasha Thomason MD ADMITTING DIAGNOSIS: 1. Lung cancer, stage 4, on hospice care. DISCHARGE DIAGNOSIS: 1. . CHIEF COMPLAINT: Shortness of breath. HISTORY OF PRESENT ILLNESS: This is a 65 year-old male patient who has a history of stage 4 lung cancer. He came to the Emergency Room with shortness of breath. He is on oxygen at home but has progressively gotten more short of breath since the previous day. He is a DNR but initially was going to be sent to [facility] and actually was transferred and due to his increase shortness of breath in the ambulance on the way, he was brought back to the hospital as they felt it would be more prudent to admit the patient to hospice in the hospital until he could get hospital bed set up at his home. He did get a DNR signed in the Emergency Room. [facility] did come in and do an evaluation. He was placed on azithromycin and Rocephin in the Emergency Room and the patient presented to the hospital for hospice care to await setup at home. Hospice orders were written by [facility]. PAST MEDICAL HISTORY: 1. Chronic obstructive pulmonary disease. 2. Lung cancer, stage 4. 3. Diabetes. 4. Renal disease. 5. Bladder and kidney cancer. PAST SURGICAL HISTORY: 1. Urostomy placement. CURRENT MEDICATIONS: Per the EMR. ALLERGIES: CODEINE AND PENICILLIN. REVIEW OF SYSTEMS: Deferred. PHYSICAL EXAMINATION: VITAL SIGNS: Temperature 98.1, heart rate 106, blood pressure 119/72, respiratory rate 20, oxygen saturation 99% on 12 liters nasal cannula. That was titrated down to 4 liters nasal cannula and is now 92%. GENERAL: This is a 65 year-old male patient who is in respiratory distress. He is very ill-appearing. HEENT: Normocephalic and atraumatic. Oropharynx is clear. NECK: Supple. CHEST: He is tachypneic. CARDIOVASCULAR: Tachycardic rate, regular rhythm. ABDOMEN: Soft, nondistended. NEUROLOGIC: He is lethargic LABORATORY: WBCs 12,900, hemoglobin 7.8, hematocrit 24.6. Sodium 134, potassium 3.6, chloride 91, carbon dioxide 32, BUN 29, creatinine 3.2. Blood cultures are pending. Covid swab was negative. RADIOLOGY: Chest x-ray: complete opacity of the right hemithorax without volume loss or mediastinal displacement. The patient was noted to have a right hilar neoplasm in October of 2020, postobstructive airspace process with effusion lilkly. HOSPITAL COURSE AND DISCHARGE PLAN: The patient was admitted to the hospital. He is on hospice care. Orders have been written by [facility]. [facility] has asked us to titrate his oxygen to 4 liters nasal cannula or less and at this point he is on 4 liters nasal cannula. His equipment and bed were to be ready tomorrow and planned for discharge at that time. At 1814 patient . and was pronounced at that time. Body was released to [facility] at family's request. DISCHARGE MEDICATIONS: None. #[id number]
[2021-01-04] MEDS ORDERED: cefTRIAXone SODIUM 1 GM in SODIUM CHL 0.9% 50ML MIN-BAG+ 50 ML IVPB SCH (16:00)
[2021-01-04] MEDS ORDERED: AZITHROMYCIN IV 500 MG VIAL IVPB ONE (16:25)
[2021-01-04] MEDS ORDERED: SODIUM CHL 0.9% 50ML MIN-BAG+ 50 ML IVPB ONE (16:26)
[2021-01-04] MEDS ORDERED: cefTRIAXone SODIUM 1 GM VIAL ONE (16:26)
[2021-01-04] MEDS ORDERED: SODIUM CHLORIDE 0.9% 250ML 250 ML ONE (16:26)
[2021-01-04] MEDS ORDERED: AZITHROMYCIN IV 500 MG in SODIUM CHLORIDE 0.9% 250ML 250 ML IVPB SCH (16:30)
[2021-01-04] MEDS ORDERED: SCOPOLAMINE PATCH 1.5MG 1 EA TD ONE ×2 (17:59→18:00)
--- NOTE | 2021-01-05 13:52 | SSS ---
SUPERVISING PHYSICIAN: Lasha Thomason MD DATE OF : 01/04/2021 ADMITTING DIAGNOSIS: 1. Lung cancer, stage 4, on hospice care. DISCHARGE DIAGNOSIS: 1. . CHIEF COMPLAINT: Shortness of breath. HISTORY OF PRESENT ILLNESS: This is a 65 year-old male patient who has a history of stage 4 lung cancer. He came to the Emergency Room with shortness of breath. He is on oxygen at home but has progressively gotten more short of breath since the previous day. He is a DNR but initially was going to be sent to [facility] and actually was transferred and due to his increase shortness of breath in the ambulance on the way, he was brought back to the hospital as they felt it would be more prudent to admit the patient to hospice in the hospital until he could get hospital bed set up at his home. He did get a DNR signed in the Emergency Room. [facility] did come in and do an evaluation. He was placed on azithromycin and Rocephin in the Emergency Room and the patient presented to the hospital for hospice care to await setup at home. Hospice orders were written by [facility]. PAST MEDICAL HISTORY: 1. Chronic obstructive pulmonary disease. 2. Lung cancer, stage 4. 3. Diabetes. 4. Renal disease. 5. Bladder and kidney cancer. PAST SURGICAL HISTORY: 1. Urostomy placement. CURRENT MEDICATIONS: Per the EMR. ALLERGIES: CODEINE AND PENICILLIN. REVIEW OF SYSTEMS: Deferred. PHYSICAL EXAMINATION: VITAL SIGNS: Temperature 98.1, heart rate 106, blood pressure 119/72, respiratory rate 20, oxygen saturation 99% on 12 liters nasal cannula. That was titrated down to 4 liters nasal cannula and is now 92%. GENERAL: This is a 65 year-old male patient who is in respiratory distress. He is very ill-appearing. HEENT: Normocephalic and atraumatic. Oropharynx is clear. NECK: Supple. CHEST: He is tachypneic. CARDIOVASCULAR: Tachycardic rate, regular rhythm. ABDOMEN: Soft, nondistended. NEUROLOGIC: He is lethargic LABORATORY: WBCs 12,900, hemoglobin 7.8, hematocrit 24.6. Sodium 134, potassium 3.6, chloride 91, carbon dioxide 32, BUN 29, creatinine 3.2. Blood cultures are pending. Covid swab was negative. RADIOLOGY: Chest x-ray: complete opacity of the right hemithorax without volume loss or mediastinal displacement. The patient was noted to have a right hilar neoplasm in October of 2020, postobstructive airspace process with effusion likely. HOSPITAL COURSE AND DISCHARGE PLAN: The patient was admitted to the hospital. He is on hospice care. Orders have been written by Davion. Davion has asked us to titrate his oxygen to 4 liters nasal cannula or less and at this point he is on 4 liters nasal cannula. His equipment and bed were to be ready tomorrow and planned for discharge at that time. At 1814 patient . and was pronounced at that time. Body was released to [facility] at family's request. DISCHARGE MEDICATIONS: None. [id number]
== END 2021-01-04 18:15 | disposition expired | DRG 951 ==
LOC: ER 14:54 → MS 23:02
PROVIDERS: ADMIT Nurse Practitioner Acute Care; ATTEND Nurse Practitioner Acute Care
DX: Z51.5 Encounter for palliative care (principal); C34.01 Malignant neoplasm of right main bronchus; J44.9 Chronic obstructive pulmonary disease, unspecified; E11.21 Type 2 diabetes mellitus with diabetic nephropathy; N18.9 Chronic kidney disease, unspecified; Z66 Do not resuscitate; Z99.81 Dependence on supplemental oxygen; Z88.0 Allergy status to penicillin; Z88.5 Allergy status to narcotic agent